=== PATIENT | male | born 1945 | race Caucasian/White ===

== ENCOUNTER 2017-01-14 18:06 | Emergency (ER) | payer MEDICARE | END 2017-01-14 21:11 | disposition home or self-care (01) | LOC: D.ER 18:06 | DX: Z76.5 Malingerer [conscious simulation] (principal); Z03.89 Encounter for observation for other suspected diseases and conditions ruled out; I10 Essential (primary) hypertension; J44.9 Chronic obstructive pulmonary disease, unspecified; E11.9 Type 2 diabetes mellitus without complications; F17.200 Nicotine dependence, unspecified, uncomplicated ==

== ENCOUNTER 2017-01-19 12:02 | Emergency (ER) | payer MEDICARE | END 2017-01-19 18:02 | disposition home or self-care (01) | LOC: D.ER 12:02 | DX: M54.5 Low back pain (principal); G03.9 Meningitis, unspecified; Z76.0 Encounter for issue of repeat prescription; I10 Essential (primary) hypertension; J44.9 Chronic obstructive pulmonary disease, unspecified; E11.9 Type 2 diabetes mellitus without complications ==

== ENCOUNTER 2017-02-02 15:44 | Observation (INO) | payer MEDICARE ==
[~2017-02-02] VITALS: Ht 177.8 cm; Wt 103.2 kg
[2017-02-02 17:31] LABS: BASOPHILS 0.3 % (0-2); EOSINOPHILS 1.2 % (0-7); HEMATOCRIT 36.9 % (42.0-54.0); HEMOGLOBIN 11.7 g/dL (13.5-17.5); LYMPHOCYTES 13.9 % (15-50); MCH 27.7 pg (26.0-34.0); MCHC 31.7 g/dL (31.0-37.0); MCV 87.4 fL (80.0-100.0); MEAN PLATELET VOLUME 9.1 fL (7.4-10.4); MONOCYTES 6.3 % (2-11); NEUTROPHILS 77.3 % (40-80); PLATELET COUNT 298 10x3/uL (130-400); RBC 4.22 10x6/uL (4.20-6.10); RDW 13.9 % (11.5-14.5); WBC 9.7 10x3/uL (4.8-10.8)
[2017-02-02 17:46] LABS: ALKALINE PHOSPHATASE 73 U/L (46-116); ALT (SGPT) 21 U/L (10-68); CALC OSMOLALITY 281 mosm/kg (275-300); CALCIUM 8.4 mg/dL (8.5-10.1); CHLORIDE - SERUM 102 mmol/L (98-107); CREATININE - SERUM 0.8 mg/dL (0.6-1.3); GLUCOSE 190 mg/dL (74-106); POTASSIUM - SERUM 3.9 mmol/L (3.5-5.1); PROTEIN - SERUM 6.8 g/dL (6.4-8.2); SODIUM 140 mmol/L (136-145); UREA NITROGEN 7 mg/dL (7-18); eGFR NON AFRICAN AMERICAN > 90 mL/min (90-120)
[2017-02-02 18:01] LABS: CHOL - HDL RATIO 4.6 ratio (2.3-4.9); CHOLESTEROL, TOTAL 176 mg/dL (0-200); CKMB 0.8 U/L (0.0-3.6); CREATINE KINASE 53 UL (21-232); HDL CHOLESTEROL 38 mg/dL (32-96); LDL CHOLESTEROL 115 mg/dL (0-100); TRIGLYCERIDE 116 mg/dL (30-200); TROPONIN-I < 0.017 ng/mL (0.000-0.060)
--- NOTE | 2017-02-02 20:35 | NUR ---
ARRIVED TO FLOOR VIA WHEELCHAIR, ACCOMPANIED BY HOSPITAL STAFF. UP IN ROOM TO SHOWER. WILL CONTINUE TO MONITOR. SEE NURSE ASSESSMENT.
[2017-02-02] MEDS ORDERED: LOTENSIN20 MG PO (23:06)
[2017-02-02] MEDS ORDERED: FENOFIBRATE160 MG PO ×2 (23:07→23:13)
[2017-02-02] MEDS ORDERED: MYSOLINE 50 MG50 MG PO (23:09)
[2017-02-02] MEDS ORDERED: GLUCOPHAGE1000 MG PO (23:10)
[2017-02-02] MEDS ORDERED: NORVASC5 MG PO (23:11)
[2017-02-02] MEDS ORDERED: PROSCAR5 MG PO (23:11)
[2017-02-02] MEDS ORDERED: PROPRANOLOL HCL20 MG PO (23:12)
[2017-02-02] MEDS ORDERED: LODINE400 MG PO (23:23)
[2017-02-02] MEDS ORDERED: DEXILANT60 MG PO (23:23)
[2017-02-02] MEDS ORDERED: PLAVIX75 MG PO (23:24)
[2017-02-02] MEDS ORDERED: PEPCID40 MG PO (23:24)
[2017-02-02] MEDS ORDERED: ONGLYZA5 MG PO (23:25)
[2017-02-02] MEDS ORDERED: PRAVACHOL40 MG PO (23:26)
[2017-02-03] VITALS: BP 152/70
[2017-02-03 00:05] VITALS: BP 160/85; Ht 177.8 cm; Wt 103.2 kg
--- NOTE | 2017-02-03 03:04 | NUR ---
SHEET [employer] MAINTENANCE AT BEDSIDE TO OBTAIN VITALS, CALL LIGHT IN REACH. WILL CONTINUE WITH PLAN OF CARE.
[2017-02-03 04:00] VITALS: BP 136/61
--- NOTE | 2017-02-03 07:38 | NUR ---
ASSESSMENT COMPLETED. TELEMERTY SHOWS SR AT 81.O2 AT 2 L/M PER NC.LEFT AC SL. DR WHITNEY. DENIES ANY CHEST PAIN. BUT DOES HAVE BACK PAIN. WILL MONITOR
[2017-02-03 07:48] VITALS: BP 149/62
--- NOTE | 2017-02-03 10:36 | NUR ---
PT DIASCHARGED. AWAITING TRANSPORTATION
--- NOTE | 2017-02-03 11:25 | NUR ---
TO PRIVATE CAR PER WHEEL CHAIR
== END 2017-02-03 11:25 | disposition home or self-care (01) ==
LOC: D.ER 15:44 → D.M2 18:45 → OBSVTIME 18:45 → D.M2 18:45
PROVIDERS: Emergency Medicine; ADMIT Internal Medicine Cardiovascular Disease
DX: I20.0 Unstable angina (principal); J44.9 Chronic obstructive pulmonary disease, unspecified; I10 Essential (primary) hypertension; E78.5 Hyperlipidemia, unspecified; E11.40 Type 2 diabetes mellitus with diabetic neuropathy, unspecified; Z86.73 Personal history of transient ischemic attack (TIA), and cerebral infarction without residual deficits

== ENCOUNTER 2017-02-17 15:35 | Emergency (ER) | payer MEDICARE ==
[2017-02-03 00:05] VITALS: BMI 31.6
[~2017-02-17 15:35] MED LIST: DEXILANT60 MG PO; FENOFIBRATE160 MG PO; GLUCOPHAGE1000 MG PO; LODINE400 MG PO; LOTENSIN20 MG PO; MYSOLINE 50 MG50 MG PO; NORVASC5 MG PO; ONGLYZA5 MG PO; PEPCID40 MG PO; PLAVIX75 MG PO; PRAVACHOL40 MG PO; PROPRANOLOL HCL20 MG PO; PROSCAR5 MG PO
== END 2017-02-17 19:00 | disposition left against medical advice (07) ==
LOC: D.ER 15:35
DX: S89.91XA Unspecified injury of right lower leg, initial encounter (principal); X58.XXXA Exposure to other specified factors, initial encounter; Y93.89 Activity, other specified; Y92.89 Other specified places as the place of occurrence of the external cause

== ENCOUNTER 2017-02-26 21:26 | Emergency (ER) | payer MEDICARE ==
[2017-02-03 00:05] VITALS: BMI 31.6
[2017-02-26 22:24] LABS: BASOPHILS 0.3 % (0-2); HEMATOCRIT 37.3 % (42.0-54.0); HEMOGLOBIN 12.2 g/dL (13.5-17.5); LYMPHOCYTES 37.1 % (15-50); MCHC 32.7 g/dL (31.0-37.0); MCV 82.5 fL (80.0-100.0); MEAN PLATELET VOLUME 10.3 fL (7.4-10.4); MONOCYTES 12.4 % (2-11); NEUTROPHILS 49.2 % (40-80); PLATELET COUNT 231 10x3/uL (130-400); RBC 4.52 10x6/uL (4.20-6.10); RDW 15.1 % (11.5-14.5)
[2017-02-26 22:29] LABS: ALBUMIN 3.2 g/dL (3.4-5.0); ALKALINE PHOSPHATASE 83 U/L (46-116); ALT (SGPT) 27 U/L (10-68); BILIRUBIN - TOTAL 0.46 mg/dL (0.2-1.3); CALC OSMOLALITY 279 mosm/kg (275-300); CALCIUM 8.6 mg/dL (8.5-10.1); CARBON DIOXIDE 26.7 mmol/L (21.0-32.0); CHLORIDE - SERUM 103 mmol/L (98-107); CREATININE - SERUM 0.9 mg/dL (0.6-1.3); GLUCOSE 165 mg/dL (74-106); POTASSIUM - SERUM 3.1 mmol/L (3.5-5.1); PROTEIN - SERUM 7.2 g/dL (6.4-8.2); SODIUM 139 mmol/L (136-145); UREA NITROGEN 7 mg/dL (7-18); eGFR NON AFRICAN AMERICAN 89 mL/min (90-120)
== END 2017-02-27 00:30 | disposition home or self-care (01) ==
LOC: D.ER 21:26
PROVIDERS: Emergency Medicine
DX: J44.1 Chronic obstructive pulmonary disease with (acute) exacerbation (principal); I10 Essential (primary) hypertension; E11.9 Type 2 diabetes mellitus without complications

== ENCOUNTER 2017-03-05 17:13 | Emergency (ER) | payer MEDICARE ==
[2017-02-03 00:05] VITALS: BMI 31.6
== END 2017-03-05 20:55 | disposition home or self-care (01) ==
LOC: D.ER 17:13
DX: K64.9 Unspecified hemorrhoids (principal); J44.9 Chronic obstructive pulmonary disease, unspecified; I10 Essential (primary) hypertension

== ENCOUNTER 2017-05-09 20:01 | Emergency (ER) | payer MEDICARE ==
[2017-02-03 00:05] VITALS: BMI 31.6
== END 2017-05-09 22:55 | disposition home or self-care (01) ==
LOC: D.ER 20:01
DX: M25.512 Pain in left shoulder (principal); R00.0 Tachycardia, unspecified; M54.5 Low back pain; W10.9XXA Fall (on) (from) unspecified stairs and steps, initial encounter; Y93.89 Activity, other specified; Y92.019 Unspecified place in single-family (private) house as the place of occurrence of the external cause; J44.9 Chronic obstructive pulmonary disease, unspecified; I10 Essential (primary) hypertension; E11.9 Type 2 diabetes mellitus without complications

== ENCOUNTER 2017-05-14 16:42 | Emergency (ER) | payer MEDICARE | END 2017-05-14 19:46 | disposition home or self-care (01) | LOC: D.ER 16:42 | DX: S40.012A Contusion of left shoulder, initial encounter (principal); S50.02XA Contusion of left elbow, initial encounter; S70.02XA Contusion of left hip, initial encounter; W10.9XXA Fall (on) (from) unspecified stairs and steps, initial encounter; Y93.89 Activity, other specified; Y92.019 Unspecified place in single-family (private) house as the place of occurrence of the external cause; J44.9 Chronic obstructive pulmonary disease, unspecified; I10 Essential (primary) hypertension ==

== ENCOUNTER 2017-05-16 19:50 | Emergency (ER) | payer MEDICARE ==
[2017-02-03 00:05] VITALS: BMI 31.6
== END 2017-05-16 22:01 | disposition home or self-care (01) ==
LOC: D.ER 19:50
DX: R07.89 Other chest pain (principal); G89.29 Other chronic pain; I10 Essential (primary) hypertension; J44.9 Chronic obstructive pulmonary disease, unspecified; E11.9 Type 2 diabetes mellitus without complications

== ENCOUNTER 2017-05-25 14:13 | Emergency (ER) | payer MEDICARE ==
[2017-02-03 00:05] VITALS: BMI 31.6
== END 2017-05-25 16:47 | disposition home or self-care (01) ==
LOC: D.ER 14:13
DX: M16.11 Unilateral primary osteoarthritis, right hip (principal); M17.11 Unilateral primary osteoarthritis, right knee; Z91.81 History of falling; M25.551 Pain in right hip; M25.561 Pain in right knee; I10 Essential (primary) hypertension; E11.9 Type 2 diabetes mellitus without complications; J44.9 Chronic obstructive pulmonary disease, unspecified

== ENCOUNTER 2017-05-28 23:07 | Emergency (ER) | payer MEDICARE ==
[2017-02-03 00:05] VITALS: BMI 31.6
== END 2017-05-28 23:43 | disposition home or self-care (01) ==
LOC: D.ER 23:07
DX: M19.012 Primary osteoarthritis, left shoulder (principal); M25.512 Pain in left shoulder; G89.29 Other chronic pain; I10 Essential (primary) hypertension

== ENCOUNTER 2017-05-30 05:03 | Emergency (ER) | payer MEDICARE ==
[2017-02-03 00:05] VITALS: BMI 31.6
== END 2017-05-30 05:58 | disposition home or self-care (01) ==
LOC: D.ER 05:03
DX: S79.911A Unspecified injury of right hip, initial encounter (principal); G89.29 Other chronic pain; J44.9 Chronic obstructive pulmonary disease, unspecified; I10 Essential (primary) hypertension; G20 Parkinson's disease

== ENCOUNTER 2017-05-30 14:07 | Emergency (ER) | payer MEDICARE ==
[2017-02-03 00:05] VITALS: BMI 31.6
== END 2017-05-30 16:45 | disposition home or self-care (01) ==
LOC: D.ER 14:07
DX: R07.81 Pleurodynia (principal); W19.XXXA Unspecified fall, initial encounter; Y93.89 Activity, other specified; Y92.027 Garden or yard of mobile home as the place of occurrence of the external cause; J44.9 Chronic obstructive pulmonary disease, unspecified; I10 Essential (primary) hypertension

== ENCOUNTER 2017-05-31 00:23 | Emergency (ER) | payer MEDICARE ==
[2017-02-03 00:05] VITALS: BMI 31.6
== END 2017-05-31 00:44 | disposition home or self-care (01) ==
LOC: D.ER 00:23
DX: M25.551 Pain in right hip (principal); G89.29 Other chronic pain; J44.9 Chronic obstructive pulmonary disease, unspecified; I10 Essential (primary) hypertension; G20 Parkinson's disease

== ENCOUNTER 2017-05-31 17:56 | Emergency (ER) | payer MEDICARE ==
[2017-02-03 00:05] VITALS: BMI 31.6
== END 2017-05-31 22:03 | disposition home or self-care (01) ==
LOC: D.ER 17:56
DX: M25.551 Pain in right hip (principal); S76.011A Strain of muscle, fascia and tendon of right hip, initial encounter; X58.XXXA Exposure to other specified factors, initial encounter; Y93.89 Activity, other specified; Y92.029 Unspecified place in mobile home as the place of occurrence of the external cause; J44.9 Chronic obstructive pulmonary disease, unspecified; G20 Parkinson's disease; I10 Essential (primary) hypertension

== ENCOUNTER 2017-06-12 00:20 | Emergency (ER) | payer MEDICARE ==
[2017-02-03 00:05] VITALS: BMI 31.6
== END 2017-06-12 00:52 | disposition home or self-care (01) ==
LOC: D.ER 00:20
DX: M25.551 Pain in right hip (principal); M25.552 Pain in left hip; J44.9 Chronic obstructive pulmonary disease, unspecified

== ENCOUNTER 2017-06-14 00:24 | Emergency (ER) | payer MEDICARE ==
[2017-02-03 00:05] VITALS: BMI 31.6
== END 2017-06-14 01:43 | disposition home or self-care (01) ==
LOC: D.ER 00:24
DX: M25.552 Pain in left hip (principal); M25.551 Pain in right hip; J44.9 Chronic obstructive pulmonary disease, unspecified

== ENCOUNTER 2017-06-20 23:22 | Emergency (ER) | payer MEDICARE ==
[2017-02-03 00:05] VITALS: BMI 31.6
== END 2017-06-21 00:33 | disposition home or self-care (01) ==
LOC: D.ER 23:22
DX: S29.012A Strain of muscle and tendon of back wall of thorax, initial encounter (principal); W19.XXXA Unspecified fall, initial encounter; Y93.89 Activity, other specified; Y92.029 Unspecified place in mobile home as the place of occurrence of the external cause; J44.9 Chronic obstructive pulmonary disease, unspecified

== ENCOUNTER 2017-06-24 01:52 | Emergency (ER) | payer MEDICARE ==
[2017-02-03 00:05] VITALS: BMI 31.6
[2017-06-24 03:43] LABS: BASOPHILS 0.4 % (0-2); EOSINOPHILS 1.5 % (0-7); HEMATOCRIT 41.2 % (42.0-54.0); IMMATURE GRANULOCYTES 0.5 % (0-5); LYMPHOCYTES 23.3 % (15-50); MCH 25.6 pg (26.0-34.0); MCHC 31.6 g/dL (31.0-37.0); MCV 81.3 fL (80.0-100.0); MEAN PLATELET VOLUME 9.2 fL (7.4-10.4); MONOCYTES 9.8 % (2-11); NEUTROPHILS 64.5 % (40-80); PLATELET COUNT 259 10x3/uL (130-400); RBC 5.07 10x6/uL (4.20-6.10); RDW 15.7 % (11.5-14.5); WBC 8.5 10x3/uL (4.8-10.8)
[2017-06-24 03:59] LABS: ALBUMIN 3.6 g/dL (3.4-5.0); ALKALINE PHOSPHATASE 116 U/L (46-116); ALT (SGPT) 21 U/L (10-68); BILIRUBIN - TOTAL 0.33 mg/dL (0.2-1.3); CALC OSMOLALITY 281 mosm/kg (275-300); CALCIUM 9.3 mg/dL (8.5-10.1); CARBON DIOXIDE 29.6 mmol/L (21.0-32.0); CHLORIDE - SERUM 103 mmol/L (98-107); CREATININE - SERUM 0.8 mg/dL (0.6-1.3); GLUCOSE 183 mg/dL (74-106); POTASSIUM - SERUM 3.6 mmol/L (3.5-5.1); PROTEIN - SERUM 7.8 g/dL (6.4-8.2); SODIUM 139 mmol/L (136-145); UREA NITROGEN 10 mg/dL (7-18); eGFR NON AFRICAN AMERICAN > 90 mL/min (90-120)
[2017-06-24 04:08] LABS: AMYLASE - SERUM 15 U/L (25-115); C-REACTIVE PROTEIN 0.4 mg/dL (0.0-0.9); LIPASE 102 U/L (73-393); THYROID STIMULATING HORMONE 1.21 uIU/mL (0.36-3.74)
[2017-06-24 04:37] LABS: ERYTHROCYTE SEDIMENTATION RATE 23 mm/hr (0-20)
== END 2017-06-24 04:56 | disposition home or self-care (01) ==
LOC: D.ER 01:52
PROVIDERS: Family Medicine
DX: R21 Rash and other nonspecific skin eruption (principal); M25.552 Pain in left hip; M25.551 Pain in right hip; G89.29 Other chronic pain; J44.9 Chronic obstructive pulmonary disease, unspecified

== ENCOUNTER 2017-06-24 19:54 | Emergency (ER) | payer MEDICARE ==
[2017-02-03 00:05] VITALS: BMI 31.6
== END 2017-06-24 21:25 | disposition home or self-care (01) ==
LOC: D.ER 19:54
DX: M79.605 Pain in left leg (principal); M79.604 Pain in right leg; M19.90 Unspecified osteoarthritis, unspecified site

== ENCOUNTER 2017-06-26 03:51 | Emergency (ER) | payer MEDICARE ==
[2017-02-03 00:05] VITALS: BMI 31.6
== END 2017-06-26 05:27 | disposition home or self-care (01) ==
LOC: D.ER 03:51
DX: S80.12XA Contusion of left lower leg, initial encounter (principal); S80.02XA Contusion of left knee, initial encounter; S70.02XA Contusion of left hip, initial encounter; W10.9XXA Fall (on) (from) unspecified stairs and steps, initial encounter; Y93.89 Activity, other specified; Y92.029 Unspecified place in mobile home as the place of occurrence of the external cause; J44.9 Chronic obstructive pulmonary disease, unspecified

== ENCOUNTER 2017-06-28 19:03 | Emergency (ER) | payer MEDICARE ==
[2017-02-03 00:05] VITALS: BMI 31.6
== END 2017-06-28 21:43 | disposition home or self-care (01) ==
LOC: D.ER 19:03
DX: M25.562 Pain in left knee (principal); M25.462 Effusion, left knee; J44.9 Chronic obstructive pulmonary disease, unspecified

== ENCOUNTER 2017-07-01 17:28 | Emergency (ER) | payer MEDICARE ==
[2017-02-03 00:05] VITALS: BMI 31.6
== END 2017-07-01 21:25 | disposition home or self-care (01) ==
LOC: D.ER 17:28
DX: S29.012A Strain of muscle and tendon of back wall of thorax, initial encounter (principal); W19.XXXA Unspecified fall, initial encounter; Y93.89 Activity, other specified; Y92.89 Other specified places as the place of occurrence of the external cause; J44.9 Chronic obstructive pulmonary disease, unspecified

== ENCOUNTER 2017-07-09 01:01 | Emergency (ER) | payer MEDICARE ==
[2017-02-03 00:05] VITALS: BMI 31.6
[2017-07-09 01:54] LABS: BASOPHILS 0.5 % (0-2); EOSINOPHILS 3.4 % (0-7); HEMATOCRIT 35.5 % (42.0-54.0); HEMOGLOBIN 11.6 g/dL (13.5-17.5); IMMATURE GRANULOCYTES 0.6 % (0-5); LYMPHOCYTES 24.2 % (15-50); MCH 26.4 pg (26.0-34.0); MCHC 32.7 g/dL (31.0-37.0); MCV 80.7 fL (80.0-100.0); MEAN PLATELET VOLUME 9.5 fL (7.4-10.4); MONOCYTES 9.7 % (2-11); NEUTROPHILS 61.6 % (40-80); PLATELET COUNT 208 10x3/uL (130-400); RDW 16.1 % (11.5-14.5); WBC 6.5 10x3/uL (4.8-10.8)
[2017-07-09 02:09] LABS: ALBUMIN 3.1 g/dL (3.4-5.0); ALKALINE PHOSPHATASE 113 U/L (46-116); ALT (SGPT) 20 U/L (10-68); BILIRUBIN - TOTAL 0.44 mg/dL (0.2-1.3); CALCIUM 8.5 mg/dL (8.5-10.1); CARBON DIOXIDE 27.1 mmol/L (21.0-32.0); CHLORIDE - SERUM 104 mmol/L (98-107); CREATININE - SERUM 0.8 mg/dL (0.6-1.3); POTASSIUM - SERUM 3.4 mmol/L (3.5-5.1); PROTEIN - SERUM 7.1 g/dL (6.4-8.2); SODIUM 140 mmol/L (136-145); UREA NITROGEN 6 mg/dL (7-18); eGFR NON AFRICAN AMERICAN > 90 mL/min (90-120)
[2017-07-09 02:17] LABS: PRO BNP 543 pg/mL (0-125)
[2017-07-09 02:22] LABS: CALC OSMOLALITY 284 mosm/kg (275-300); GLUCOSE 234 mg/dL (74-106); TROPONIN-I < 0.017 ng/mL (0.000-0.060)
== END 2017-07-09 04:05 | disposition home or self-care (01) ==
LOC: D.ER 01:01
PROVIDERS: Family Medicine
DX: R06.00 Dyspnea, unspecified (principal)

== ENCOUNTER 2017-07-22 00:47 | Emergency (ER) | payer MEDICARE ==
[2017-02-03 00:05] VITALS: BMI 31.6
== END 2017-07-22 02:55 | disposition home or self-care (01) ==
LOC: D.ER 00:47
DX: M54.5 Low back pain (principal); J44.9 Chronic obstructive pulmonary disease, unspecified

== ENCOUNTER 2017-07-27 18:11 | Emergency (ER) | payer MEDICARE ==
[2017-02-03 00:05] VITALS: BMI 31.6
== END 2017-07-27 19:50 | disposition home or self-care (01) ==
LOC: D.ER 18:11
DX: M54.5 Low back pain (principal); M47.9 Spondylosis, unspecified; S39.012A Strain of muscle, fascia and tendon of lower back, initial encounter; X58.XXXA Exposure to other specified factors, initial encounter; Y93.89 Activity, other specified; Y92.029 Unspecified place in mobile home as the place of occurrence of the external cause; J44.9 Chronic obstructive pulmonary disease, unspecified

== ENCOUNTER 2017-11-12 16:39 | Emergency (ER) | payer MEDICARE, MEDICAID ==
[2017-02-03 00:05] VITALS: BMI 31.6
== END 2017-11-12 17:57 | disposition home or self-care (01) ==
LOC: D.ER 16:39
DX: S80.01XA Contusion of right knee, initial encounter (principal); W19.XXXA Unspecified fall, initial encounter; Y93.89 Activity, other specified; Y92.89 Other specified places as the place of occurrence of the external cause; M25.461 Effusion, right knee

== ENCOUNTER 2017-11-15 01:19 | Emergency (ER) | payer MEDICARE, MEDICAID ==
[2017-02-03 00:05] VITALS: BMI 31.6
[2017-11-15 02:09] LABS: BASOPHILS 0.2 % (0-2); EOSINOPHILS 0.8 % (0-7); HEMATOCRIT 37.1 % (42.0-54.0); HEMOGLOBIN 12.2 g/dL (13.5-17.5); IMMATURE GRANULOCYTES 0.2 % (0-5); LYMPHOCYTES 20.2 % (15-50); MCH 26.9 pg (26.0-34.0); MCHC 32.9 g/dL (31.0-37.0); MCV 81.9 fL (80.0-100.0); MONOCYTES 9.1 % (2-11); NEUTROPHILS 69.5 % (40-80); PLATELET COUNT 207 10x3/uL (130-400); RBC 4.53 10x6/uL (4.20-6.10); RDW 15.9 % (11.5-14.5); WBC 8.5 10x3/uL (4.8-10.8)
[2017-11-15 02:24] LABS: ALBUMIN 3.5 g/dL (3.4-5.0); ALKALINE PHOSPHATASE 89 U/L (46-116); ALT (SGPT) 17 U/L (10-68); BILIRUBIN - TOTAL 0.45 mg/dL (0.2-1.3); CALC OSMOLALITY 279 mosm/kg (275-300); CALCIUM 8.8 mg/dL (8.5-10.1); CHLORIDE - SERUM 101 mmol/L (98-107); CREATININE - SERUM 0.8 mg/dL (0.6-1.3); LIPASE 71 U/L (73-393); POTASSIUM - SERUM 3.3 mmol/L (3.5-5.1); PROTEIN - SERUM 7.6 g/dL (6.4-8.2); SODIUM 141 mmol/L (136-145); UREA NITROGEN 5 mg/dL (7-18); eGFR NON AFRICAN AMERICAN > 90 mL/min (90-120)
[2017-11-15 02:27] LABS: GLUCOSE 130 mg/dL (74-106)
== END 2017-11-15 03:39 | disposition home or self-care (01) ==
LOC: D.ER 01:19
PROVIDERS: Emergency Medicine
DX: S39.012A Strain of muscle, fascia and tendon of lower back, initial encounter (principal); X58.XXXA Exposure to other specified factors, initial encounter; Y93.89 Activity, other specified; Y92.019 Unspecified place in single-family (private) house as the place of occurrence of the external cause; M51.36 Other intervertebral disc degeneration, lumbar region; K59.00 Constipation, unspecified

== ENCOUNTER 2017-11-18 12:28 | Emergency (ER) | payer MEDICARE, MEDICAID ==
[2017-02-03 00:05] VITALS: BMI 31.6
== END 2017-11-18 13:48 | disposition home or self-care (01) ==
LOC: D.ER 12:28
DX: M54.5 Low back pain (principal); M62.838 Other muscle spasm

== ENCOUNTER 2017-11-23 19:26 | Emergency (ER) | payer MEDICARE, MEDICAID ==
[2017-02-03 00:05] VITALS: BMI 31.6
== END 2017-11-23 23:01 | disposition home or self-care (01) ==
LOC: D.ER 19:26
DX: M54.5 Low back pain (principal)